=== PATIENT | female | born 1935 | race Caucasian/White ===

== ENCOUNTER 2024-03-12 07:23 | Inpatient (IN) | payer MEDICARE, OTHER ==
[2024-03-12] MEDS ORDERED: Ketorolac Tromethamine 30 MG (1 mL) VIAL ONE (08:52)
[2024-03-12] MEDS ORDERED: Ondansetron PF 4 MG/2 ML Vial ONE (08:55)
[2024-03-12] MEDS ORDERED: Dextrose 50% Abboject 50 ML SYRINGE SLOW IVP PRN (11:07)
[2024-03-12] MEDS ORDERED: Insulin Lispro 100 UNIT/ML 10 ML VIAL SC PRN (11:07)
[2024-03-12] MEDS ORDERED: Glucagon 1 MG/ML KIT IM PRN (11:07)
[2024-03-12] MEDS ORDERED: Dextrose 5% in Water 1,000 ML IV PRN (11:07)
[2024-03-12] MEDS ORDERED: traMADol HCl 50 MG TAB PO PRN (11:07)
[2024-03-12] MEDS ORDERED: Morphine 2 MG/ML VIAL SLOW IVP PRN (11:07)
[2024-03-12] MEDS ORDERED: Promethazine HCl 25 MG/ML VIAL IM PRN (11:07)
[2024-03-12] MEDS ORDERED: Acetaminophen 500 MG TAB ONE (11:42)
[2024-03-12] MEDS ORDERED: Iopamidol-370 76% 500 ML MDV (1 ML CHARGE) ONE ×2 (11:50→12:05)
[2024-03-12 11:54] VITALS: BMI 20.2
[2024-03-12] MEDS ORDERED: Clindamycin/D5W 900 MG in Premix 1 BAG IVPB SCH (12:00)
[2024-03-12 12:42] LABS: Troponin I Less than 0.010 ng/mL (< 0.028)
[2024-03-12] MEDS ORDERED: Acetaminophen 650 MG/20.3 ML UDCUP ONE (18:08)
[2024-03-12] MEDS: Acetaminophen 325 MG TAB PO PRN (18:11)
[2024-03-13 05:44] LABS: #Basophils 0.04 10x3/uL (0.0-0.2); #Eosinophils Less than 0.03 10x3/uL (0.0-0.7); %Basophils 0.4 % (0.0-1.0); %Eosinophils 0.1 % (0.0-10.0); %Lymphocytes 18.3 % (21.0-51.0); %Monocytes 8.5 % (0.0-10.0); Hematocrit 35.4 % (36.0-47.0); Hemoglobin 11.8 g/dL (12.0-16.0); Mean Corpuscular HGB CONC 33.3 g/dL (32.0-36.0); Mean Corpuscular Hemoglobin 28.4 pg (27.0-31.0); Mean Corpuscular Volume 85.1 fL (78.0-98.0); Mean Platelet Volume 9.6 fL (7.4-10.4); Platelet Count 241 10x3/uL (130-400); RBC Distribution Width 13.6 % (11.5-14.5); Red Blood Cell (RBC) Count 4.16 mill/uL (4.20-5.40)
[2024-03-13 05:58] LABS: Anion Gap 14 mmol/L (10-20); BUN (Urea Nitrogen) 16 mg/dL (9.8-20.1); Calc. Creatinine Clearance 41 mL/min (70-130); Calcium 8.7 mg/dL (7.8-10.44); Carbon Dioxide 24 mmol/L (23-31); Chloride 104 mmol/L (98-107); Estimated GFR 84; Glucose 112 mg/dL (83-110); Potassium 3.6 mmol/L (3.5-5.1); Sodium 138 mmol/L (136-145)
[2024-03-13] MEDS ORDERED: PROPOFOL 20 ML ONE (14:52)
[2024-03-13] MEDS ORDERED: Lidocaine 1% PF 5 ML VIAL ONE (14:55)
[2024-03-13] MEDS ORDERED: Dexamethasone 20 MG/5 ML VIAL ONE (14:55)
[2024-03-13] MEDS ORDERED: Lidocaine 2% 6 ML (Jelly) SYR ONE (14:55)
[2024-03-13] MEDS ORDERED: Ondansetron PF 4 MG/2 ML Vial ONE (14:55)
[2024-03-13] MEDS ORDERED: Rocuronium Bromide 10 MG/ML (10ML VIAL) ONE (14:58)
[2024-03-13] MEDS ORDERED: Clindamycin/D5W 900 mg/50 ml Premix Bag ONE (15:11)
[2024-03-13] MEDS ORDERED: fentaNYL 50 mcg/mL 1 mL Vial ONE (15:45)
[2024-03-13] MEDS ORDERED: Bupivacaine PF 0.5% 30 ML VIAL ONE (15:49)
[2024-03-13] MEDS ORDERED: PHENYLEPHRINE-NS 100 MCG/ML 10 ML SYRINGE ONE (15:50)
[2024-03-13] MEDS ORDERED: SUGAMMADEX SODIUM 200 MG/2 ML VIAL ONE ×2 (16:27→16:36)
[2024-03-13] MEDS: Clindamycin 150 MG CAP PO SCH (18:31)
[2024-03-13] MEDS: Acetaminophen/Codeine 30-300mg Tablet PO PRN (22:12)
[2024-03-14 05:36] LABS: #Basophils Less than 0.03 10x3/uL (0.0-0.2); #Eosinophils Less than 0.03 10x3/uL (0.0-0.7)
[2024-03-14 05:55] LABS: %Basophils 0.2 % (0.0-1.0); %Lymphocytes 11.6 % (21.0-51.0); %Monocytes 7.4 % (0.0-10.0); %Neutrophils 80.3 % (42.0-75.0); Hemoglobin 10.8 g/dL (12.0-16.0); Mean Corpuscular HGB CONC 32.7 g/dL (32.0-36.0); Mean Corpuscular Hemoglobin 28.1 pg (27.0-31.0); Mean Corpuscular Volume 85.7 fL (78.0-98.0); Mean Platelet Volume 9.7 fL (7.4-10.4); Platelet Count 215 10x3/uL (130-400); RBC Distribution Width 13.7 % (11.5-14.5); Red Blood Cell (RBC) Count 3.85 mill/uL (4.20-5.40)
[2024-03-14] MEDS: Enoxaparin 30 MG (0.3 mL) SYRINGE SC SCH (09:03)
[2024-03-14] MEDS: Senokot S 8.6-50 MG TAB PO SCH (09:03)
[2024-03-14] MEDS: Polyethylene Glycol 3350 17 GM Packet PO SCH (09:03)
[2024-03-14] MEDS: Melatonin 3 MG TAB PO SCH (21:13)
[2024-03-15] MEDS: Melatonin 3 MG TAB PO SCH (20:39)
[2024-03-17] MEDS: QUEtiapine 25 MG TAB PO SCH (21:24)
[2024-03-17] MEDS: Methocarbamol 500 MG TAB PO SCH (22:59)
[2024-03-18] MEDS: Ondansetron PF 4 MG/2 ML Vial IVP PRN (09:18)
[2024-03-18] MEDS: Calcium Carbonate 500 MG ChewTAB PO SCH (09:28)
[2024-03-18] MEDS: Pantoprazole DR 40 MG TAB PO SCH (09:28)
[2024-03-18] MEDS: Gabapentin 100 MG CAP PO SCH (17:13)
[2024-03-18] MEDS: Atorvastatin Calcium 10 MG TAB PO SCH (20:50)
[2024-03-19] MEDS: Gabapentin 100 MG CAP PO SCH (09:22)
[2024-03-19 18:43] VITALS: BMI 20.2
[2024-03-20 11:31] VITALS: BP 115/62; TEMP 98.1
== END 2024-03-20 14:28 | DRG 511 ==
LOC: ERS 07:23 → ERHOLD 11:10 → SURG A 20:40
PROVIDERS: ADMIT Specialist; ATTEND Specialist
PROC: 0PSK04Z Reposition Right Ulna with Internal Fixation Device, Open Approach (ICD-10-PCS; principal; 2024-03-13)
DX: S52.031A Displaced fracture of olecranon process with intraarticular extension of right ulna, initial encounter for closed fracture (principal); S32.10XA Unspecified fracture of sacrum, initial encounter for closed fracture; S32.501A Unspecified fracture of right pubis, initial encounter for closed fracture; E78.5 Hyperlipidemia, unspecified; I10 Essential (primary) hypertension; Z88.0 Allergy status to penicillin; V03.10XA Pedestrian on foot injured in collision with car, pick-up truck or van in traffic accident, initial encounter; Y93.89 Activity, other specified; Y92.89 Other specified places as the place of occurrence of the external cause; Z85.3 Personal history of malignant neoplasm of breast; Z90.710 Acquired absence of both cervix and uterus; Z90.11 Acquired absence of right breast and nipple; Z79.899 Other long term (current) drug therapy
CPT/HCPCS: 36415; 71045; 71260; 72170; 74177; 80048; 84484; 85025; 93005; 96374; 96375; C1713; C1874; G0390; J0665; J1100; J1650; J1885; J2405; J2704; J3010; J3490; Q9967